=== PATIENT | female | born 1995 | race Caucasian/White ===

== ENCOUNTER 2019-07-22 07:24 | Outpatient (CLI) | payer OTHER ==
[2019-07-22 09:09] LABS: ALBUMIN 3.8 g/dL (3.4-5.0); ANION GAP 5 mmol/L (5-15); CALCIUM 9.1 mg/dL (8.5-10.1); CHLORIDE 113 mmol/L (98-107)
[2019-07-22 09:20] LABS: BASOPHILS # (AUTO) 0.02 x10^3/uL (0-0.1); BASOPHILS % (AUTO) 0 % (0-1); EOSINOPHILS # (AUTO) 0.04 x10^3/uL (0-0.4); EOSINOPHILS % (AUTO) 1 % (1-7); LYMPHOCYTES # (AUTO) 1.43 x10^3/uL (1-3.4); LYMPHOCYTES % (AUTO) 23 % (22-44); MD SCAN; MEAN CORPUSCULAR HEMOGLOBIN 31.9 pg (27.0-34.8); MEAN CORPUSCULAR HGB CONC 34.8 g/dL (32.4-35.8); MEAN CORPUSCULAR VOLUME 91.7 fL (80-100); MEAN PLATELET VOLUME 14.2 fL (7.4-10.4); MONOCYTES # (AUTO) 0.28 x10^3/uL (0.2-0.8); MONOCYTES % (AUTO) 5 % (2-9); NEUTROPHILS % (AUTO) 71 % (42-75); PLATELET COUNT 145 x10^3/uL (130-400); RED BLOOD COUNT 4.24 x10^6/uL (3.82-5.3); RED CELL DISTRIBUTION WIDTH 12.3 % (9.6-15.2)
[2019-07-22 09:21] LABS: HCT (SEDRATE) 38.9 % (34.6-47.8)
[2019-07-22 09:35] LABS: % IRON SATURATION 28 % (20-55); ALANINE AMINOTRANSFERASE 18 U/L (12-78); ALKALINE PHOSPHATASE 59 U/L (45-117); BILIRUBIN,TOTAL 0.5 mg/dL (0.2-1.0); CREATININE 0.94 mg/dL (0.55-1.02); FOLATE LEVEL 19.3 ng/mL (3.1-17.5); FREE T4 (FREE THYROXINE) 1.23 ng/dL (0.76-1.46); IRON LEVEL 105 mcg/dL (50-170); TOTAL IRON BINDING CAPACITY 371 mcg/dL (250-450); TOTAL PROTEIN 7.7 g/dL (6.4-8.2)
== END 2019-07-22 23:59 | disposition home or self-care (01) ==
LOC: LAB 07:24
PROVIDERS: ATTEND Family Medicine Sports Medicine
DX: Z00.01 Encounter for general adult medical examination with abnormal findings (principal); E55.9 Vitamin D deficiency, unspecified; N76.3 Subacute and chronic vulvitis; R14.0 Abdominal distension (gaseous); R14.3 Flatulence; L70.0 Acne vulgaris; R53.83 Other fatigue; M54.17 Radiculopathy, lumbosacral region
CPT/HCPCS: 36415; 80053; 80061; 81377; 81383; 82306; 82542; 82607; 82627; 82728; 82746; 82784; 83036; 83090; 83516; 83525; 83540; 83550; 83655; 83695; 83704; 83721; 83735; 83789; 83825; 84255; 84402; 84403; 84439; 84443; 84481; 84630; 85025; 85651; 86003; 86141; 86255; 86376; 86800